=== PATIENT | female | born 1995 | race Caucasian/White ===

== ENCOUNTER 2019-11-24 06:43 | Inpatient (IN) | payer MEDICAID, OTHER ==
[2019-11-24] VITALS (44 sets, daily range): BP systolic 78–138; BP diastolic 22–118
[~2019-11-24] VITALS: Ht 170.2 cm; Wt 106.6 kg
[2019-11-24] MEDS ORDERED: NOREPINEPHRINE 8 MG/250ML KIT 250 ML IV SCH (07:00)
[2019-11-24] MEDS ORDERED: NOREPINEPHRINE 8 MG/250ML KIT 250 ML IV ONE (07:01)
[2019-11-24] MEDS: NOREPINEPHRINE 8 MG/250ML KIT 250 ML IV SCH ×3 (07:08→16:38)
[2019-11-24] MEDS ORDERED: NALOXONE HCL 0.4 MG/ML VIAL ONE (07:22)
[2019-11-24] MEDS ORDERED: SODIUM BICARBONATE 8.4% INJ 50ML SYRINGE ONE ×3 (07:39→10:34)
[2019-11-24] MEDS ORDERED: DOPamine 1600MCG/ML D5W 250 ML IV ONE (07:45)
[2019-11-24] MEDS ORDERED: NALOXONE HCL 0.4 MG/ML VIAL IV ONE (07:45)
[2019-11-24 08:15] LABS: Hemoglobin 12.2 g/dL (12.2-16.2)
[2019-11-24 08:17] LABS: Hematocrit 41.2 % (36.0-46.0); Mean Corpuscular Hemoglobin 27.1 pg (28.0-32.0); Mean Corpuscular Hgb Conc. 29.7 g/dL (32.0-36.0); Mean Corpuscular Volume 91.2 fL (80.0-100.0); Platelet Count (auto) 275 10^3/uL (140-450); Red Blood Cells 4.51 10^6/uL (4.0-5.20)
[2019-11-24 08:27] LABS: Calcium 9.5 mg/dL (8.5-10.1); Potassium 5.5 mmol/L (3.5-5.1); White Blood Cell 31.5 10^3/uL (4.4-10.8)
[2019-11-24 08:28] LABS: Basophils % (manual) 0 (0.0-2.0); Promyelocytes % 0
[2019-11-24 08:29] LABS: Blast Cells 0; Reactive Lymphocytes 0
[2019-11-24] MEDS ORDERED: SODIUM BICARBONATE 50ML VIAL 50 ML in SOD CHL 0.45% 1,000 ML IV ONE (08:30)
[2019-11-24] MEDS ORDERED: SODIUM BICARBONATE 8.4 % INJ 50ML VIAL IV ONE ×7 (08:30→10:45)
[2019-11-24] MEDS ORDERED: PHENYLEPHRINE IV 250 ML IV ONE (08:32)
[2019-11-24 08:39] LABS: Band Neutrophils % (manual) 3; Eosinophils % (manual) 4 (0-7); Lymphocytes % (manual) 45 (10.0-50.0); Metamyelocytes % 5; Monocytes % (manual) 3 (0-12); Myelocytes % 8
[2019-11-24 08:44] LABS: BUN/Creatinine Ratio 6.1; Bilirubin, Total 0.4 mg/dL (0.2-1.0); Total Protein 6.5 g/dL (6.4-8.2)
[2019-11-24 08:45] LABS: INR 1.32 (0.9-1.15); Partial Thromboplastin Time 54.4 sec (23.0-31.2)
[2019-11-24 08:55] LABS: Amphetamine Screen, Urine NEGATIVE (NEGATIVE); Barbiturate Scree,Urine NEGATIVE (NEGATIVE); Benzodiazephine Screen, Urine NEGATIVE (NEGATIVE); Cannabinoid Screen, Urine NEGATIVE (NEGATIVE); Cocaine Screen, Urine NEGATIVE (NEGATIVE); Opiate Scree,Urine NEGATIVE (NEGATIVE); Phencyclidine Screen, Urine NEGATIVE (NEGATIVE)
[2019-11-24] MEDS: PHENYLEPHRINE IV 250 ML IV SCH ×3 (10:00→16:37)
[2019-11-24] MEDS ORDERED: PIPERACILLIN-TAZO 4.5GM 100 ML IV ONE (10:15)
[2019-11-24 10:27] LABS: Lactic Acid w/Reflex 18.9 mmol/L (0.4-2.0)
[2019-11-24] MEDS: ACCU-CHEK COMFORT CURVE STRIP VI SCH ×3 (12:00→20:00)
[2019-11-24] MEDS: DOBUTamine 1000MCG/ML 250 ML IV SCH ×2 (12:00→22:15)
[2019-11-24] MEDS ORDERED: SODIUM CHLORIDE 0.9% 3,000 ML IV ONE (12:00)
[2019-11-24] MEDS ORDERED: DEXTROSE (50%) 50ML SYRG IV PRN (12:00)
[2019-11-24] MEDS: InsuLIN REG 1unit/0.01ml Soln (100units/ml) SC SCH ×3 (12:00→20:00)
[2019-11-24] MEDS ORDERED: SODIUM BICARBONATE 50ML VIAL 150 ML in D5W 5% 1,000 ML IV ONE (12:00)
[2019-11-24] MEDS ORDERED: NITROGLYCERIN 0.4 MG SL TAB SL PRN (12:00)
[2019-11-24] MEDS ORDERED: SODIUM CHLORIDE 0.9% 1,000 ML IV ONE (12:00)
[2019-11-24] MEDS ORDERED: MORPHINE SULF INJ 2 MG/ML SYRINGE 1ML IV PRN (12:00)
--- NOTE | 2019-11-24 12:45 | NUR ---
Admit to ICU from ER on vent XIOMARA SHAH admitted to ICU via gurney on cardiac sonographer, intubated and being bagged by Respiratory Therapist. Patient transferred to bed, connected to mechanical ventilator by therapist, ANGELES at bedside. Patient connected to ICU monitoring, weighed by bedscale, oriented to Tessa Doss primary RN, unit, ventilator and sedation. pupils noted fixed and dilated at 5. No gag reflex, no sedation infusing. Patient mechanically ventilated at 100% fi02 with current pox 70-82. R.t at bedside Patient on multiple pressors. bp 80's, patient tachycardic, dopamine titrated down due to hr 130's. See iv spread sheet. All pressors infusing to right subclavian. Site noted to ooz blood around site.- line noted good blood return and no resistance. Ng to left nare placed to lcs with brown/maroon secretions mixed with solid pieces. Dietrich noted to have approx 250cc of clear yellow urine. General skin intact / See further notes.
[2019-11-24] MEDS: VASOPRESSIN 50 UNITS in D5W 5% 247.5 ML IV SCH (13:00)
--- NOTE | 2019-11-24 13:00 | NUR ---
FAMILY MOTHER, BONIFACIO UPDATED ON PATIENTS STATUS. MOTHER AWARE OF PATIENTS POOR PROGNOSIS AT THIS TIME. PER MOTHER PATIENT TO REMAIN FULL CODE AT THIS TIME DESPITE PATIENTS POOR FINDINGS. VISITING LIMITATION REVIEWED WITH MOTHER. PER CHIMNEY BUILDER BRICK, OK FOR MOTHER TO VISIT EVERY DAY FOR 1HR.
[2019-11-24] MEDS ORDERED: VASOPRESSIN 20 UNIT/ML ONE (13:07)
[2019-11-24 14:25] LABS: Hematocrit 40.9 % (36.0-46.0); Hemoglobin 12.9 g/dL (12.2-16.2); Mean Corpuscular Hemoglobin 27.4 pg (28.0-32.0); Mean Corpuscular Hgb Conc. 31.5 g/dL (32.0-36.0); Mean Corpuscular Volume 86.9 fL (80.0-100.0); Platelet Count (auto) 336 10^3/uL (140-450); Red Blood Cells 4.71 10^6/uL (4.0-5.20); Red Cell Distribution Width 14.6 % (11.8-14.3); White Blood Cell 12.7 10^3/uL (4.4-10.8)
[2019-11-24 14:28] LABS: Basophils % (manual) 0 (0.0-2.0); Blast Cells 0; Eosinophils % (manual) 0 (0-7); Promyelocytes % 0
[2019-11-24 14:34] LABS: Albumin 2.4 g/dL (3.4-5.0); Calcium 7.4 mg/dL (8.5-10.1); Potassium 3.6 mmol/L (3.5-5.1)
[2019-11-24 14:37] LABS: Lactic Acid w/Reflex 11.5 mmol/L (0.4-2.0)
[2019-11-24 14:43] LABS: Bilirubin, Total 0.7 mg/dL (0.2-1.0); Total Protein 5.7 g/dL (6.4-8.2)
--- NOTE | 2019-11-24 14:45 | NUR ---
MD ROUNDS DR. GARDNER UPDATED ON PATIENTS STATUS. NEW ORDERS IN PLACE. MD AWARE THERAPEUTIC HYPOTHERMIA WAS NOT INITIATED. PATIENT CURRENTLY HYPOTHERMIC. MD STATED OK TO START TO WARM PATIENT. WARMING MEASURES IN PLACE. PER MD. [facility] TO BE NOTIFIED.
--- NOTE | 2019-11-24 15:00 | NUR ---
ELIMINATION PATIENT HAD A LARGE, FOUL, LIQUID, MUCOID BM WITH SOLIDS PIECES NOTED AND PATIENT BECAME HYPOTENSIVE IN THE 70'S. COMPLETE BED CHANGE REQUIRED. PRESSORS INCREASED. SEE IV SPREADSHEET.
[2019-11-24 15:14] LABS: Band Neutrophils % (manual) 11; Lymphocytes % (manual) 29 (10.0-50.0); Metamyelocytes % 3; Monocytes % (manual) 9 (0-12); Myelocytes % 3; Reactive Lymphocytes 7
--- NOTE | 2019-11-24 15:26 | NUR ---
CRITICAL LAB CRITICAL TROPONIN. MD AWARE. PATIENT S/P CPR.
[2019-11-24] MEDS: EPINEPHrine HCL 250 ML IV SCH ×2 (15:30→21:05)
--- NOTE | 2019-11-24 16:30 | NUR ---
Forging Roll Operator paged re: blood gas.
[2019-11-24] MEDS: PIPERACILLIN-TAZOB 3.375GM 100 ML IV SCH (16:46)
--- NOTE | 2019-11-24 16:53 | NUR ---
paged to verify bicarb gtt. Awaiting callback
--- NOTE | 2019-11-24 17:31 | NUR ---
MD CALLED BACK LABS AND BLOOD GAS REVIEWED. SEE NEW ORDERS.
--- NOTE | 2019-11-24 17:31 | NUR ---
[facility] UPDATED ON PATIENTS STATUS PER MD REQUEST. REF#[id number]. [facility] TO BE CALLED IF FAMILY DECIDES TO WITHDRAWAL CARE BEFORE STAFF CONTINUOUS YARN DYEING MACHINE OPERATOR ARRIVES.
--- NOTE | 2019-11-24 17:39 | NUR ---
Respiratory note: RECEIVED PT ON VENT V14, VENT CONNECTED TO RED OUTLET AND O2 SOURCE ALARMS ARE SET AND AUDIBLE AMBU BAG AND MASK AT BEDSIDE. BS ARE FINE COURSE, SXD VIA ETT FOR MODERATE THICK TRINH/CREAMY SECRETIONS. NO GAG SEEN WITH SXD. RT NAME AND PAGER ASSIGNMENT WRITTEN ON PTS ROOM BOARD. PTS CURRENT TEMP READING AT 96.8F. WARMING MEASURES BEING TAKEN. WILL CONTINUE TO MONITOR.
[2019-11-24] MEDS: SODIUM BICARBONATE 50ML VIAL 150 ML in D5W 5% 1,000 ML IV SCH (17:43)
--- NOTE | 2019-11-24 18:54 | NUR ---
WOUND CARE NOTE: PATIENT RECENTLY ADMITTED TO [facility] WITH DIAGNOSIS OF S/P CARDIAC ARREST. SHE IS INTUBATED, NON RESPONSIVE. PATIENT ON MULTIPLE VASOPRESSORS, RESTING ON ICU LOW AIRLOSS BED. CURRENT EDWIN SCORE IS 10. PATIENT IS UNRESPONSIVE, S/P CPR, WITH ANOXIC BRAIN INJURY, HYPOVOLEMIC SHOCK, MULTI ORGAN FAILURE. PATIENT IS CURRENTLY WOUND FREE AT THIS TIME. RECOMMEND: FREQUENT TURN SCHEDULE Q 2HOURS, PRN CONDITION PERMITS, WITH PRESSURE REDISTRIBUTION USING PILLOWS/WEDGES, BID/PRN APPLICATION MOISTURE BARRIER CREAM, OPTIFOAM GENTLE SACRAL DRESSING PREVENTATIVE, DIETARY CONSULT FOR INTUBATION STATUS, SKIN/WOUND CARE PLAN, CONTINUED MONITORING BY WOUND CARE TEAM.
--- NOTE | 2019-11-24 19:30 | NUR ---
Opening Shift Note: Patient is intubated/sedated. ET size 7.5/23 @ lip. Settings: AC rate 22, vT 450, FiO2 80%, and PEEP 5. Neuro: pupils are bilateral 7 mm/fixed/no accommodation present; extremities are flaccid. Cardio: ST in the 130s-140s; SBPs 110-130s; no edema noted; pulses are weak with doppler assistance. Resp: anterior lung sounds throughout inspiratory wheeze/coarse; ET secretions none; oral secretions small rust/blood thin. GI: L nare NGT to LIS with rust/brown output; BS present; large copious mucoid/bloody stool that is liquid. : macario inserted on 11/24/19 for strict I/O; yellow/cloudy. Skin intact. IV: right subclavian TLC inserted on 11/24/19 running Vasopressin @ 0.05; Levo @ 30; Marciano @ 180; NaBicarb (3 amps) @ 125 ml/hr; IV 20 g left AC running TKO/ABX inserted on 11/24/19. Pending neurology/pulmonary consultations; ABG/CXR/CMP/CBC in AM. Will continue to round/reposition/perform oral care prn.
[2019-11-24] MEDS: PHENYLEPHRINE INJ 40 MG in SODIUM CHL 0.9% 250 ML IV SCH ×3 (19:45→23:45)
--- NOTE | 2019-11-24 19:57 | NUR ---
Respiratory note: AT BEDSIDE FOR ROUTINE VENT CHECK. FIO2 TITRATES TO 60%. PT TOLERATING CHANGE WELL. RN ZAK COMMUNICATED ON O2 CHANGE. PTS CURRENT TEMP IS 98.8F. NO SXD DONE AT THIS TIME. WILL CONTINUE TO MONITOR.
--- NOTE | 2019-11-24 21:00 | NUR ---
Unable to get a blood pressure: Epinephrine started per protocol.
--- NOTE | 2019-11-24 21:45 | NUR ---
Page sent to Dr. Harrison (saxophone teacher for Dr. Prakash); notified him about patient status. New orders received for acetaminophen IV Q12H prn for temp greater than 100.4 (currently 102.0 rectal); rectal tube insertion for copious mucoid/bloody stool; double concentration orders for levophed and willa.
--- NOTE | 2019-11-24 22:02 | NUR ---
Respiratory note: AT BEDSIDE FOR ROUTINE VENT CHECK. FIO2 TITRATES TO 50%. PT TOLERATING CHANGE WELL. TRUDY CRESPO AT BEDSIDE AND COMMUNICATED ON O2 CHANGE. PTS CURRENT TEMP READS 102.0F. COOLING MEASURES BEING TAKEN. SXD VIA ETT FOR SCANT THICK TRINH. WILL CONTINUE TO MONITOR.
[2019-11-24] MEDS: DOPamine 1600MCG/ML D5W 250 ML IV SCH (22:10)
--- NOTE | 2019-11-24 22:10 | NUR ---
Unable to get blood pressure again: Dopamine and Dobutamine started per protocol.
--- NOTE | 2019-11-24 22:10 | NUR ---
Page sent to Dr. Harrison in regards to low to absent blood pressures. New order received to restart dopamine. Also notified him that family is on their way up to the hospital given patient poor prognosis.
[2019-11-24] MEDS ORDERED: ACETAMINOPHEN IV 1000 MG/100ML (10MG/ML) IV PRN (22:30)
[2019-11-24] MEDS: NOREPINEPHRINE BITARTRATE 16 MG in SODIUM CHL 0.9% 250 ML IV SCH (22:35)
--- NOTE | 2019-11-24 23:30 | NUR ---
Dr. Lund at bedside for neurology consultation. Spoke with family about neurological status of patient. Family wants the patient to remain a full code at this time.
--- NOTE | 2019-11-24 23:57 | NUR ---
Respiratory note: AT BEDSIDE FOR ROUTINE VENT CHECK. CRASH CART AT BEDSIDE DUE TO CHANGE HR AND BP. PTS FAMILY ARRIVED TO BEDSIDE AT THIS TIME. PTS CURRENT TEMP READS 99.5F. WILL CONTINUE TO MONITOR.
[2019-11-25] VITALS (103 sets, daily range): BP systolic 35–109; BP diastolic 14–45
[2019-11-25] MEDS: DOBUTamine 1000MCG/ML 250 ML IV SCH ×11 (00:30→22:11)
[2019-11-25] MEDS: PIPERACILLIN-TAZOB 3.375GM 100 ML IV SCH ×3 (01:15→14:08)
[2019-11-25] MEDS: InsuLIN REG 1unit/0.01ml Soln (100units/ml) SC SCH ×5 (01:15→16:43)
[2019-11-25] MEDS: ACCU-CHEK COMFORT CURVE STRIP VI SCH ×5 (01:15→16:14)
[2019-11-25] MEDS ORDERED: NOREPINEPHRINE BITARTRATE 2 ML IV ONE (01:31)
[2019-11-25] MEDS ORDERED: PHENYLEPHRINE HCL 10 MG/ML VL ONE ×2 (01:31→05:54)
[2019-11-25] MEDS ORDERED: PHENYLEPHRINE IV 250 ML IV ONE (01:32)
[2019-11-25] MEDS ORDERED: NOREPINEPHRINE 8 MG/250ML KIT 250 ML IV ONE (01:32)
[2019-11-25] MEDS: PHENYLEPHRINE INJ 40 MG in SODIUM CHL 0.9% 250 ML IV SCH ×5 (01:44→21:31)
[2019-11-25] MEDS: SODIUM BICARBONATE 50ML VIAL 150 ML in D5W 5% 1,000 ML IV SCH ×2 (01:45→11:54)
--- NOTE | 2019-11-25 02:04 | NUR ---
Respiratory note: AT BEDSIDE FOR ROUTINE VENT CHECK. PTS CURRENT TEMP READS 97.3F. CRASH CART REMAINS AT BEDSIDE. NO CHANGES MADE. FAMILY MEMBER AT BEDSIDE. WILL CONTINUE TO MONITOR.
[2019-11-25] MEDS: NOREPINEPHRINE BITARTRATE 16 MG in SODIUM CHL 0.9% 250 ML IV SCH ×3 (02:05→19:47)
[2019-11-25] MEDS: DOPamine 1600MCG/ML D5W 250 ML IV SCH ×6 (02:30→20:40)
[2019-11-25] MEDS: EPINEPHrine HCL 250 ML IV SCH ×3 (03:53→16:52)
[2019-11-25] MEDS: VASOPRESSIN 50 UNITS in D5W 5% 247.5 ML IV SCH ×2 (03:53→10:25)
--- NOTE | 2019-11-25 04:15 | NUR ---
Respiratory note: AT BEDSIDE FOR END OF SHIFT VENT CHECK. PT IS NOW IN ISOLATION. PT BEING RULED OUT FOR COVID. VENT CHECK DONE FROM PTS ROOM DOOR DUE TO PRECAUTIONS FOR COVID. PTS CURRENT TEMP READS 98.4F. CRASH CART REMAINS AT BEDSIDE. NO CHANGES MADE. WILL HAVE DAY SHIFT CONTINUE POC.
[2019-11-25 04:24] LABS: Hemoglobin 10.4 g/dL (12.2-16.2); Red Cell Distribution Width 15.2 % (11.8-14.3)
[2019-11-25 04:34] LABS: Hematocrit 34.1 % (36.0-46.0); Mean Corpuscular Hemoglobin 27.5 pg (28.0-32.0); Mean Corpuscular Hgb Conc. 30.4 g/dL (32.0-36.0); Mean Corpuscular Volume 90.4 fL (80.0-100.0); Platelet Count (auto) 180 10^3/uL (140-450); Red Blood Cells 3.77 10^6/uL (4.0-5.20); White Blood Cell 21.6 10^3/uL (4.4-10.8)
[2019-11-25 04:35] LABS: Basophils % (manual) 0 (0.0-2.0); Blast Cells 0; Eosinophils % (manual) 0 (0-7); Promyelocytes % 0; Reactive Lymphocytes 0
[2019-11-25 04:40] LABS: Potassium 3.3 mmol/L (3.5-5.1)
[2019-11-25 05:04] LABS: Albumin 1.8 g/dL (3.4-5.0); BUN/Creatinine Ratio 4.1; Bilirubin, Total 1.2 mg/dL (0.2-1.0); Calcium 6.2 mg/dL (8.5-10.1); Total Protein 4.1 g/dL (6.4-8.2)
[2019-11-25 05:09] LABS: Band Neutrophils % (manual) 41; Lymphocytes % (manual) 10 (10.0-50.0); Metamyelocytes % 8; Monocytes % (manual) 2 (0-12); Myelocytes % 4
--- NOTE | 2019-11-25 07:26 | NUR ---
REPORT OBTAINED UPDATED ON PATIENTS OCCURRENCE OVER NIGHT AND NEED FOR ADDITIONAL PRESSORS WITH MAX. DOSES. PATIENTS HR ST 137 AND BP RANGING 50'S/20'S. REMAINS MECHANICALLY VENTILATED. PATIENT REMAINS FULL CODE WITH CRASH CART AT BEDSIDE AND PATIENT BEING RULED OUT FOR COVID. SEE ASSESSMENT/FURTHER NOTES.
--- NOTE | 2019-11-25 07:42 | NUR ---
UNABLE TO REPOSITION PATIENT UNSTABLE FOR POSITION CHANGE AT THIS TIME. BP 50'S/ 20'S ON MULTIPLE PRESSORS. POSITION CHANGE HELD THROUGHOUT SHIFT IF BP DOES NOT STABILIZE.
--- NOTE | 2019-11-25 09:00 | NUR ---
Patient unstable for ct of head at this time. See V/S.
--- NOTE | 2019-11-25 09:56 | NUR ---
Respiratory note: DR MELO CALLED WITH ABG RESULT. NO ANSWER LEFT A MESSAGE.
--- NOTE | 2019-11-25 10:31 | NUR ---
Patient remains unstable for position change. Current bp 65/10 on Multiple pressors at max dose. Addendum: 11/25/19 at 1032 by Tessa Doss RN Amended: Links added.
--- NOTE | 2019-11-25 11:06 | NUR ---
SALES PROGRAM MANAGER AT BEDSIDE. VENT CHANGES GIVEN TO Marta
--- NOTE | 2019-11-25 11:11 | NUR ---
Nutrition Assessment Notes Please refer to link for full assessment notes. Est Energy needs: [id number] kcals (17-20 kcal/kgBW) Est Protein needs: 76-86 gms/day (0.8-0.9 gm/kgBW) d/t pt with elev RFTs, low GFR Will continue to monitor and reassess prn. Addendum: 11/25/19 at [address] Amended: Links added.
--- NOTE | 2019-11-25 11:17 | NUR ---
Respiratory note: VENT CHANGES MADE PER DR CANALES. CHANGED FROM AC TO PC RATE 24, 20/10 I TIME OF 1:1. ABG IN ONE HOUR.
--- NOTE | 2019-11-25 12:00 | NUR ---
MD AT BEDSIDE DR. GARDNER UPDATED ON PATIENTS STATUS WITH ADDITIONAL PRESSORS ADDED SINCE PREVIOUS ROUNDS. MD AWARE OF BLOOD SUGAR. PER MD SS COVERAGE TO BE FOLLOWED. DEXTROSE 5% TO BE CONTINUED WITH BICARB AT THIS TIME. SEE MD ORDERS/ NOTES.
--- NOTE | 2019-11-25 12:40 | NUR ---
NEGATIVE COVID RESULTS. MOTHER CALLED TO NOTIFY.
--- NOTE | 2019-11-25 12:45 | NUR ---
CREDIT CASHIER AT BEDSIDE
--- NOTE | 2019-11-25 13:14 | NUR ---
FAMILY MOTHER AT BEDSIDE. QUESTIONS AND CONCERNS ADDRESSED. MOTHER AWARE OF PATIENTS CRITICAL CONDITION AT THIS TIME. MOTHER GIVEN PATIENTS BELONGINGS BROUGHT FROM ER 2 VISA CARDS PROCUREMENT TECHNICIAN LICENCE TWO HOOP METAL EARRINGS.
--- NOTE | 2019-11-25 14:20 | NUR ---
[facility] UPDATE RAMSES UPDATED ON PATIENT STATUS. IF ANY CHANGES IN PATIENTS CONDITION [facility] TO BE NOTIFIED.
--- NOTE | 2019-11-25 14:21 | NUR ---
EEG-ELECTROENCEPHALOGRAM COMPLETED AT BEDSIDE @ 1310.
--- NOTE | 2019-11-25 14:40 | NUR ---
FAMILY MOTHER ASKING RE: EEG RESULTS. MOTHER REQUESTING TO SPEAK WITH NEUROLOGIST. MOTHER AWARE PATIENT IS TOO UNSTABLE FOR HEAD CT TRANSPORT AT THIS TIME. MD PAGED PER MOTHER REQUEST. EDUCATED MOTHER THAT EEG RESULTS ARE TOOLS USED AND RESULTS WILL NOT CHANGE SIGNIFICANT FINDS. MOTHER VERBALIZED UNDERSTANDING AND STATING," I JUST WANT TO GIVE HER A CHANCE".
--- NOTE | 2019-11-25 16:29 | NUR ---
TURN ATTEMPTED PATIENTS MAP GREATER BP STABILIZED ON THIS TIME. SMALL TURN TO RIGHT DONE TO ATTEMPT TO OFF LOAD PRESSURE. UNABLE TO TURN ENOUGH TO ASSESS SACRUM. WILL CONTINUE TO MONITOR CLOSELY FOR ANY SIGNS OF ACTIVITY NOT TOLERATED.
--- NOTE | 2019-11-25 16:40 | NUR ---
HYPERGLYCEMIA PATIENTS BLOOD SUGAR CONTINUES TO BE ELEVATED. SLIDING SCALE COVERAGE GIVEN. PAGED, AWAITING CALLBACK.
--- NOTE | 2019-11-25 17:44 | NUR ---
DR. LICEA AT BEDSIDE. MD AWARE MOTHER IS REQUESTING AN UPDATE ON EEG. SEE MD NOTES/ ORDERS.
[2019-11-25] MEDS: PIPERACILLIN-TAZOB 2.25GM 50 ML IV SCH (17:51)
[2019-11-25] MEDS ORDERED: VANCOMYCIN HCL 125MG/5ML ORAL SOL PO SCH (18:00)
[2019-11-25] MEDS: SODIUM BICARBONATE 50ML VIAL 100 ML in SOD CHL 0.45% 1,000 ML IV SCH (19:00)
[2019-11-25] MEDS ORDERED: DEXTROSE (50%) 50ML SYRG IV PRN (19:15)
[2019-11-25] MEDS ORDERED: metroNIDAZOLE 500MG/100ML 100 ML IV SCH (22:00)
[2019-11-25] MEDS ORDERED: DOBUTamine 1000MCG/ML 250 ML IV SCH ×2 (22:45→23:15)
[2019-11-26] VITALS (36 sets, daily range): BP systolic 63–100; BP diastolic 29–37
[2019-11-26] MEDS: PIPERACILLIN-TAZOB 2.25GM 50 ML IV SCH ×2 (00:04→06:03)
[2019-11-26] MEDS: ACCU-CHEK COMFORT CURVE STRIP VI SCH ×3 (00:05→03:16)
[2019-11-26] MEDS ORDERED: InsuLIN REG 1unit/0.01ml Soln (100units/ml) ONE (00:14)
[2019-11-26] MEDS: DOPamine 1600MCG/ML D5W 250 ML IV SCH ×3 (00:15→07:30)
[2019-11-26] MEDS: EPINEPHrine HCL 250 ML IV SCH ×2 (00:27→06:23)
[2019-11-26] MEDS: PHENYLEPHRINE INJ 40 MG in SODIUM CHL 0.9% 250 ML IV SCH ×2 (01:25→05:21)
--- NOTE | 2019-11-26 01:46 | NUR ---
TEACHING PT NON RESPONSIVE ON MECHANICAL VENTILATOR AND DOES NOT BENEFIT FROM TEACHING AT THIS TIME. NO SECOND LEARNER PRESENT AT BEDSIDE FOR TEACHING OPPORTUNITIES. WILL CONTINUE TO MONITOR AND ASSESS FOR EDUCATION OPPORTUNITIES Addendum: 11/26/19 at 0148 by Nubia Delgado RN Amended: Links added.
[2019-11-26] MEDS: DOBUTamine HCL 500 MG in D5W 5% 210 ML IV SCH ×5 (02:07→06:47)
[2019-11-26] MEDS: VASOPRESSIN 50 UNITS in D5W 5% 247.5 ML IV SCH (02:57)
[2019-11-26] MEDS ORDERED: DEXTROSE (50%) 50ML SYRG IV PRN (03:15)
[2019-11-26] MEDS ORDERED: InsuLIN R (HUMAN) 100 UNITS in SODIUM CHL 0.9% 99 ML IV SCH ×5 (03:15→08:00)
[2019-11-26] MEDS: SODIUM BICARBONATE 50ML VIAL 100 ML in SOD CHL 0.45% 1,000 ML IV SCH (03:57)
[2019-11-26] MEDS ORDERED: ACCU-CHEK COMFORT CURVE STRIP VI SCH ×2 (04:30→09:00)
[2019-11-26] MEDS: NOREPINEPHRINE BITARTRATE 16 MG in SODIUM CHL 0.9% 250 ML IV SCH (04:30)
[2019-11-26 04:44] LABS: Hematocrit 29.5 % (36.0-46.0); Hemoglobin 9.5 g/dL (12.2-16.2); Mean Corpuscular Hemoglobin 27.9 pg (28.0-32.0); Mean Corpuscular Hgb Conc. 32.1 g/dL (32.0-36.0); Mean Corpuscular Volume 86.8 fL (80.0-100.0); Platelet Count (auto) 109 10^3/uL (140-450); Red Cell Distribution Width 15.2 % (11.8-14.3); White Blood Cell 10.7 10^3/uL (4.4-10.8)
[2019-11-26 04:56] LABS: Basophils % (manual) 0 (0.0-2.0); Blast Cells 0; INR 3.32 (0.9-1.15); Partial Thromboplastin Time 59.9 sec (23.0-31.2); Promyelocytes % 0; Reactive Lymphocytes 0
[2019-11-26 05:02] LABS: Potassium 3.1 mmol/L (3.5-5.1)
[2019-11-26 05:18] LABS: Albumin 1.5 g/dL (3.4-5.0); BUN/Creatinine Ratio 2.6; Bilirubin, Total 3.5 mg/dL (0.2-1.0); Total Protein 3.5 g/dL (6.4-8.2)
[2019-11-26 05:28] LABS: Band Neutrophils % (manual) 19; Eosinophils % (manual) 1 (0-7); Lymphocytes % (manual) 13 (10.0-50.0); Metamyelocytes % 12; Monocytes % (manual) 1 (0-12); Myelocytes % 1
[2019-11-26 05:34] LABS: Calcium 5.1 mg/dL (8.5-10.1)
--- NOTE | 2019-11-26 07:30 | NUR ---
BLOOD sugar 514. PER PROTOCOL PATIENT INCREASED TO ALGORITHM #4.
--- NOTE | 2019-11-26 08:13 | NUR ---
DR. LICEA HERE TO SEE PATIENT. SEE MD NOTES AND EMR FOR ANY NEW ORDERS.
--- NOTE | 2019-11-26 08:14 | NUR ---
TURN ATTEMPTED PATIENTS MAP CURRENTLY 46 BP NOT STABILIZED AT THIS TIME. SMALL TURN TO RIGHT DONE TO ATTEMPT TO OFF LOAD PRESSURE. UNABLE TO TURN ENOUGH TO ASSESS SACRUM. WILL CONTINUE TO MONITOR CLOSELY FOR ANY SIGNS OF ACTIVITY NOT TOLERATED.
--- NOTE | 2019-11-26 08:24 | NUR ---
Code Blue note. Please see CODE sheets and Provider/MD notes regarding patient code. Family notified of code blue and updated on patient status post code.
[2019-11-26] MEDS ORDERED: SODIUM BICARBONATE 8.4 % INJ 50ML VIAL IV ONE (08:37)
--- NOTE | 2019-11-26 08:41 | NUR ---
PATIENT PRONOUNCED PATIENT PRONOUNCED AT [address] HAND. MULTIPLE ROUNDS OF EPI, CALCIUM AND BI CARB GIVEN.
--- NOTE | 2019-11-26 09:34 | NUR ---
[facility] CALLED REGARDING PATIENTS . SPOKE WITH PATRICIA WHO STATES THAT PATIENT IS A CANDIDATE FOR TISSUE DONATION AND SHE WILL CALL BACK IN ABOUT ONE HOUR OR SO.
--- NOTE | 2019-11-26 09:38 | NUR ---
MACHINE II TRIMMER CALLED TO REPORT . AWAITING CALL BACK.
--- NOTE | 2019-11-26 10:04 | NUR ---
SLOT SHIFT MANAGER ARMAND BECERRA CALLED BACK, ALL QUESTIONS ANSWERED. RELEASE # [id number].
--- NOTE | 2019-11-26 11:07 | NUR ---
[facility] CALLED SPOKE WITH CHAN WHO STATES THAT THEY WILL REACH OUT TO MOTHER ONCE SHE IS NOT AT BEDSIDE BECAUSE PATIENT WAS A REGISTERED DONOR.
--- NOTE | 2019-11-26 14:43 | NUR ---
AFFORDABLE CREMATION HERE TO SENIOR INFORMATION SECURITY ENGINEER BODY.
--- NOTE | 2019-11-26 15:20 | NUR ---
ARTIFICIAL BREEDING RANCH SUPERVISOR CALLED BACK AND STATED THAT PATIENT IS GOING TO NOW BE A CORONERS CASE. ADAN HEADLEY DIRECTOR ICU AND HOUSE RORO SARKAR MADE AWARE.
[2019-11-26] MEDS ORDERED: SODIUM BICARBONATE 8.4% INJ 50ML SYRINGE IV ONE (18:08)
[2019-11-26] MEDS ORDERED: EPINEPHrine HCL 1 MG/10 ML SYRG IV ONE (18:08)
[2019-11-26] MEDS ORDERED: CALCIUM CHLOR(10%) 100MG/ML 10ML SYRINGE IV ONE (18:08)
--- NOTE | 2019-11-27 11:14 | NUR ---
assessment Per consult ETOH/substance abuse. Patient has been on a vent when ss consult was put it. Patient yesterday 11/26/2019. Addendum: 11/27/19 at 1115 by Mickie Eisenberg Amended: Links added.
== END 2019-11-26 18:09 | disposition expired | DRG 812 ==
LOC: ER 06:43 → ICU WEST 06:44
PROVIDERS: ADMIT Hospitalist; ATTEND Hospitalist
PROC: 5A1945Z Respiratory Ventilation, 24-96 Consecutive Hours (ICD-10-PCS; principal; 2019-11-24)
PROC: 0BH17EZ Insertion of Endotracheal Airway into Trachea, Via Natural or Artificial Opening (ICD-10-PCS; 2019-11-24)
PROC: 02HV33Z Insertion of Infusion Device into Superior Vena Cava, Percutaneous Approach (ICD-10-PCS; 2019-11-24)
PROC: 5A12012 Performance of Cardiac Output, Single, Manual (ICD-10-PCS; 2019-11-24)
DX: T39.1X1A Poisoning by 4-Aminophenol derivatives, accidental (unintentional), initial encounter (principal); T40.2X1A Poisoning by other opioids, accidental (unintentional), initial encounter; I46.9 Cardiac arrest, cause unspecified; R57.1 Hypovolemic shock; E87.2 Acidosis; I95.9 Hypotension, unspecified; G93.1 Anoxic brain damage, not elsewhere classified; T51.91XA Toxic effect of unspecified alcohol, accidental (unintentional), initial encounter; F11.10 Opioid abuse, uncomplicated; I21.9 Acute myocardial infarction, unspecified; J96.90 Respiratory failure, unspecified, unspecified whether with hypoxia or hypercapnia; Z20.828 Contact with and (suspected) exposure to other viral communicable diseases; Z82.49 Family history of ischemic heart disease and other diseases of the circulatory system; Z83.3 Family history of diabetes mellitus; G92 Toxic encephalopathy; K72.90 Hepatic failure, unspecified without coma; F10.20 Alcohol dependence, uncomplicated; K72.01 Acute and subacute hepatic failure with coma; G93.6 Cerebral edema
CPT/HCPCS: 31500; 36415; 36556; 36600; 70450; 71045; 80053; 80307; 80320; 80329; 82140; 82150; 82805; 82962; 83605; 83690; 83880; 84443; 84484; 85007; 85027; 85379; 85610; 85730; 87040; 87070; 87077; 87081; 87186; 87205; 87426; 93306; 94002; 94003; 95819; 96361; 96365; 99291; G0378; J0131; J0171; J1815; J2543; J7060